=== PATIENT | female | born 1960 ===

== ENCOUNTER 2023-05-03 08:52 | Outpatient (CLI) | payer OTHER | END 2023-05-03 08:54 | disposition home or self-care (01) | LOC: RAD 08:52 | PROVIDERS: ATTEND Physical Medicine & Rehabilitation | DX: M25.562 Pain in left knee (principal); M17.12 Unilateral primary osteoarthritis, left knee; M75.21 Bicipital tendinitis, right shoulder; M25.511 Pain in right shoulder ==